=== PATIENT | female | born 1975 | race Caucasian/White ===

== ENCOUNTER → 2021-04-04 | Outpatient (CLI) | payer BC ==
[~2021-04-04] MED LIST: ALDACTONE25 MG PO; BENADRYL25 MG PO; BUSPIRONE HCL7.5 MG PO; DILTIAZEM 12HR120 MG PO; FLONASE 0.05% N16 GM; GLUCOPHAGE500 MG PO; HYZAAR 100-251 EACH PO; IMDUR ER TAB 3030 MG PO; LOPRESSOR50 MG PO; MULTIVITAMIN1 EACH PO; NITROGLYCERIN0.4 MG PO; PAXIL10 MG PO; PRENATAL VITAM1 EAC3 PO; TOPAMAX25 MG PO; VALERIAN ROOT500 MG PO; VICTOZA 1818 MG/3 ML SC; VITAMIN D350 MC3 PO; ZESTRIL5 MG PO; ZYRTEC10 M3 PO
== END ==
LOC: LAB 09:41
DX: Z13.9 Encounter for screening, unspecified (principal); I25.10 Atherosclerotic heart disease of native coronary artery without angina pectoris
CPT/HCPCS: 36415; 80061

== ENCOUNTER → 2021-11-21 | Outpatient (CLI) | payer BC | LOC: RT 11:06 | DX: I49.3 Ventricular premature depolarization (principal) | CPT/HCPCS: 93005 ==